=== PATIENT | female | born 1945 | race Caucasian/White ===

== ENCOUNTER 2021-12-04 12:36 | Inpatient (IN) | payer BC, MEDICAID, MEDICARE ==
[~2021-12-04] VITALS: Ht 170.2 cm; Wt 81.5 kg
[~2021-12-04 12:36] MED LIST: HYDR-4383 PO
[2021-12-04 15:03] LABS: BASOPHILS # (AUTO) 0.1 X10'3 (0-0.2); BASOPHILS % (AUTO) 1.3 % (0-1); EOSINOPHILS # (AUTO) 0.1 X10'3 (0-0.9); EOSINOPHILS % (AUTO) 2.1 % (0-6); HEMATOCRIT 40.3 % (35.0-45.0); HEMOGLOBIN 14.1 g/dl (12.0-16.0); LYMPHOCYTES # (AUTO) 1.3 X10'3 (1.1-4.8); LYMPHOCYTES % (AUTO) 24.9 % (21-51); MEAN CORPUSCULAR HEMOGLOBIN 31.2 PG (27.0-31.0); MEAN CORPUSCULAR HGB CONC 34.9 g/dL (33.0-36.5); MEAN CORPUSCULAR VOLUME 89.5 FL (78-98); MEAN PLATELET VOLUME 8.2 FL (7.4-10.4); MONOCYTES # (AUTO) 0.6 X10'3 (0-0.9); MONOCYTES % (AUTO) 11.6 % (2-12); NEUTROPHILS # (AUTO) 3.2 X10'3 (1.8-7.7); NEUTROPHILS % (AUTO) 60.1 % (42-75); PLATELET COUNT 311 X10'3 (140-440); RED BLOOD COUNT 4.51 X10'6 (4.20-5.60); RED CELL DISTRIBUTION WIDTH 13.5 % (11.5-14.5); WHITE BLOOD COUNT 5.3 X10'3 (4.5-11.0)
[2021-12-04 15:18] LABS: ALANINE AMINOTRANSFERASE 66 U/L (12-78); ALBUMIN 4.2 G/DL (3.4-5.0); ALBUMIN/GLOBULIN RATIO 1.1 (1.1-1.5); ALKALINE PHOSPHATASE 99 IU/L (46-116); ANION GAP 10 (8-16); ASPARTATE AMINO TRANSFERASE 41 U/L (10-37); BILIRUBIN,TOTAL 0.5 MG/DL (0.1-1.0); BLOOD UREA NITROGEN 17 MG/DL (7-18); BUN/CREATININE RATIO 22.4 (6.6-38.0); CALCIUM 9.5 MG/DL (8.5-10.1); CHLORIDE 97 MMOL/L (99-107); CREATININE 0.76 MG/DL (0.40-0.90); GLUCOSE 108 MG/DL (70-104); POTASSIUM 3.5 MMOL/L (3.5-5.1); SODIUM 134 MMOL/L (135-145); TOTAL CARBON DIOXIDE 26.9 MMOL/L (24-32); TOTAL PROTEIN 8.2 G/DL (6.4-8.2); eGFR 74 ML/MIN
[2021-12-04] MEDS ORDERED: LISI40TA13 PO (17:19)
[2021-12-04] MEDS ORDERED: LEVO137T2 PO (17:19)
[2021-12-04] MEDS ORDERED: AMLO2.5T5 PO (17:19)
[2021-12-04] MEDS ORDERED: POTA10TA PO (17:19)
[2021-12-04] MEDS ORDERED: CARV25TA2 PO (17:19)
[2021-12-04] MEDS ORDERED: CELE-193 PO (17:19)
[2021-12-04] MEDS ORDERED: ATOR40TA PO (17:19)
[2021-12-04] MEDS ORDERED: aspirin 81mg tab.chew PO ONE (17:45)
[2021-12-04] MEDS ORDERED: potassium Cl 20 mEq SR tablet PO PRN ×2 (18:10)
[2021-12-04] MEDS ORDERED: magnesium Cl slow-release 64mg tablet PO PRN (18:10)
[2021-12-04] MEDS ORDERED: morphine 2 MG/ML inj. syringe IV PRN ×2 (18:10)
[2021-12-04] MEDS ORDERED: magnesium 4gm in 100ml NS 100 ML IV PRN (18:10)
[2021-12-04] MEDS ORDERED: magnesium 2GM in 50ml NS 50 ML IV PRN (18:10)
[2021-12-04] MEDS ORDERED: ondansetron/PF 4mg/2ml inj IV PRN (18:10)
[2021-12-04] MEDS ORDERED: magnesium hydroxide 30ml (MOM) UD suspension PO PRN (18:10)
[2021-12-04] MEDS ORDERED: metoprolol tartrate 1mg/ml inj IV PRN (18:10)
[2021-12-04] MEDS ORDERED: bisacodyl 10mg suppository rectal RC PRN (18:10)
[2021-12-04] MEDS ORDERED: HYDROcodone/acetaminophen 5mg/325mg tablet PO PRN (18:10)
[2021-12-04] MEDS ORDERED: nitroGLYCERIN 0.4mg SUBLingual tab SL PRN (18:10)
[2021-12-04] MEDS ORDERED: HYDROcodone/acetaminophen 10/325mg tab PO PRN (18:10)
[2021-12-04] MEDS ORDERED: acetaminophen 650mg rectal suppository RC PRN (18:10)
[2021-12-04] MEDS ORDERED: acetaminophen 325mg tablet PO PRN ×2 (18:10)
[2021-12-04] MEDS ORDERED: regadenoson 0.4mg/5ml syringe IV PRN (18:10)
[2021-12-04] MEDS ORDERED: mag hydrox/Alum hydrox/simeth 30ml oral suspension PO PRN (18:10)
[2021-12-04] MEDS ORDERED: potassium CL 10mEq/100ml bag 100 ML IV PRN (18:10)
[2021-12-04] MEDS ORDERED: aminophylline 500mg/20ml vial IV ONE (18:15)
--- NOTE | 2021-12-04 18:20 | NUR ---
ambulated to/from restroom without incident.
[2021-12-04] MEDS: normal saline 1000ml 1,000 ML IV SCH ×2 (18:27→18:30)
--- NOTE | 2021-12-04 18:28 | NUR ---
report to pham david
--- NOTE | 2021-12-04 18:30 | NUR ---
Pt pink, alert, eating dinner. No acute/resp distress. PIV site c/d/i s complication or adverse reaction. Bed in lowest position, wheels locked. CM, NIBP, Pulse Ox in place. Pt laying supine, able to reposition self prn.
[2021-12-04] MEDS ORDERED: CARV12.549 PO (18:37)
[2021-12-04] MEDS ORDERED: HYDR12.55 PO (18:37)
[2021-12-04] MEDS ORDERED: ATOR-2 PO (18:37)
[2021-12-04] MEDS ORDERED: AMLO5TAB16 PO (18:37)
--- NOTE | 2021-12-04 18:43 | NUR ---
Magaly in pharmacy states Amnio is to be given in stress lab and not to be given now. Advised I will non-admin the med at this time.
[2021-12-04 18:57] LABS: HEMOGLOBIN A1C 5.4 % (4.5-6.2)
[2021-12-04 19:16] LABS: CLARITY,URINE CLEAR (Clear); GLUCOSE, URINE NEGATIVE (Neg); KETONES,URINE NEGATIVE (Neg); LEUKOCYTE ESTERASE ,URINE SMALL (Neg); NITRITES, URINE NEGATIVE (Neg); OCCULT BLOOD,URINE NEGATIVE (Neg); PROTEIN,URINE NEGATIVE (Neg); UROBILINOGEN,URINE 0.2 E.U/dL (0.2-1.0)
[2021-12-04 19:17] LABS: COLOR,URINE STRAW (Yellow); UA COLLECTION TYPE CLN CATCH MIDSTREAM
[2021-12-04 19:23] LABS: BACTERIA,URINE NONE SEEN /HPF (Neg); MUCUS STRANDS NONE SEEN /LPF (Neg); RBC,URINE 0-2 /HPF (0-2); SQUAMOUS EPITHELIAL CELL,UR FEW /LPF (FEW); WBC,URINE 0-4 /HPF (0-4)
[2021-12-04] MEDS: K and/or MAG REPLACEMENT MC SCH (20:00)
[2021-12-04] MEDS: heparin, porcine 5000 units/ml vial SQ SCH (20:57)
[2021-12-04] MEDS: docusate sod 100mg capsule PO SCH (20:57)
--- NOTE | 2021-12-04 21:00 | NUR ---
No acute/resp distress. PIV site c/d/i s complication or adverse reaction. Bed in lowest position, wheels locked. CM, NIBP, Pulse Ox in place. Pt laying supine, able to reposition self prn.
--- NOTE | 2021-12-04 22:45 | NUR ---
No acute/resp distress. Pt ambulatory to and from bathroom with steady gait. PIV site c/d/i s complication or adverse reaction. Bed in lowest position, wheels locked. CM, NIBP, Pulse Ox in place. Pt laying supine, able to reposition self prn.
[2021-12-05] VITALS (10 sets, daily range): BP systolic 126–154; BP diastolic 69–80
--- NOTE | 2021-12-05 00:05 | NUR ---
Pt ambulatory to bathroom and back. No acute/resp distress. PIV site c/d/i s complication or adverse reaction. Bed in lowest position, wheels locked. CM, NIBP, Pulse Ox in place. Pt laying supine, able to reposition self prn.
[2021-12-05] MEDS: nitroGLYCERIN 0.4mg SUBLingual tab SL PRN ×2 (00:40→00:55)
--- NOTE | 2021-12-05 00:41 | NUR ---
Pt c/o chest pain 5/10, EKG repeated and NTG SL given as ordered.
--- NOTE | 2021-12-05 00:43 | NUR ---
Pt states she feels better after SL NTG, pt states pain reduced to 0/10 from 5/10 however states still feels a smaller amount of pressure in her chest that radiates to left arm. Paged hospitalist.
--- NOTE | 2021-12-05 00:56 | NUR ---
Spoke to in house doctor, no new orders at this time. PT states pain is worse now than before the first SL NTG. 01/22.
--- NOTE | 2021-12-05 01:03 | NUR ---
Consulted with registration managerRADHA Humphreys. Pt medicated per orders for pain with Morphine after second dose of SL NTG. Will reevaluate chest pain after morphine. Pt tolerated SL NTG and IV Morphine well remained pink and dry, VS as documented. PIV site c/d/i s complication or adverse reaction. Pt laying supine, able to reposition self PRN.
--- NOTE | 2021-12-05 01:12 | NUR ---
Pt states chest tightness/pain is better after morphine 2mg PIV. Pain now 1/2 mid-sternal only. Pt pink, no acute impending respiratory distress. PIV site c/d/i s complication or adverse reaction.
--- NOTE | 2021-12-05 01:29 | NUR ---
Pt pink, alert, no acute/resp distress. CM = NSR s ectopy. PIV site c/d/i. Pt bed changed from an ED bed to a floor style bed.
[2021-12-05] MEDS ORDERED: LEVO137T24 PO (02:08)
[2021-12-05 06:02] LABS: BASOPHILS % (AUTO) 0.6 % (0-1); EOSINOPHILS # (AUTO) 0.1 X10'3 (0-0.9); EOSINOPHILS % (AUTO) 1.2 % (0-6); HEMATOCRIT 38.4 % (35.0-45.0); HEMOGLOBIN 13.3 g/dl (12.0-16.0); LYMPHOCYTES # (AUTO) 1.3 X10'3 (1.1-4.8); LYMPHOCYTES % (AUTO) 20.6 % (21-51); MEAN CORPUSCULAR HEMOGLOBIN 30.6 PG (27.0-31.0); MEAN CORPUSCULAR HGB CONC 34.7 g/dL (33.0-36.5); MEAN CORPUSCULAR VOLUME 88.4 FL (78-98); MEAN PLATELET VOLUME 8.3 FL (7.4-10.4); MONOCYTES # (AUTO) 0.5 X10'3 (0-0.9); MONOCYTES % (AUTO) 7.8 % (2-12); NEUTROPHILS # (AUTO) 4.4 X10'3 (1.8-7.7); NEUTROPHILS % (AUTO) 69.8 % (42-75); PLATELET COUNT 274 X10'3 (140-440); RED BLOOD COUNT 4.34 X10'6 (4.20-5.60); RED CELL DISTRIBUTION WIDTH 13.7 % (11.5-14.5); WHITE BLOOD COUNT 6.4 X10'3 (4.5-11.0)
--- NOTE | 2021-12-05 06:12 | NUR ---
No acute/resp distress. PIV site c/d/i s complication or adverse reaction. Bed in lowest position, wheels locked. CM, NIBP, Pulse Ox in place. Pt laying supine, able to reposition self prn. Handoff report to Clint GARCIA
[2021-12-05 06:17] LABS: ALANINE AMINOTRANSFERASE 61 U/L (12-78); ALBUMIN 3.9 G/DL (3.4-5.0); ALBUMIN/GLOBULIN RATIO 1.1 (1.1-1.5); ALKALINE PHOSPHATASE 89 IU/L (46-116); ANION GAP 9 (8-16); ASPARTATE AMINO TRANSFERASE 36 U/L (10-37); BILIRUBIN,TOTAL 0.5 MG/DL (0.1-1.0); BLOOD UREA NITROGEN 13 MG/DL (7-18); BUN/CREATININE RATIO 20.3 (6.6-38.0); CALCIUM 8.8 MG/DL (8.5-10.1); CHLORIDE 100 MMOL/L (99-107); CHOL/HDL RATIO 2.1 (0.00-4.99); CHOLESTEROL 173 MG/DL (0-200); CREATININE 0.64 MG/DL (0.40-0.90); GLUCOSE 107 MG/DL (70-104); HDL CHOLESTEROL 81 MG/DL (35-60); LDL CHOLESTEROL 80 MG/DL (50-100); MAGNESIUM 1.9 MG/DL (1.5-2.4); PHOSPHORUS 3.4 MG/DL (2.3-4.5); SODIUM 137 MMOL/L (135-145); TOTAL CARBON DIOXIDE 27.7 MMOL/L (24-32); TOTAL PROTEIN 7.6 G/DL (6.4-8.2); TRIGLYCERIDES 62 MG/DL (20-135); eGFR > 90 ML/MIN
[2021-12-05] MEDS: K and/or MAG REPLACEMENT MC SCH (08:00)
[2021-12-05] MEDS: docusate sod 100mg capsule PO SCH (10:16)
[2021-12-05] MEDS: heparin, porcine 5000 units/ml vial SQ SCH (10:16)
[2021-12-05] MEDS ORDERED: HYDROchlorothiazide 12.5mg capsule PO SCH (10:56)
[2021-12-05] MEDS ORDERED: atorvastatin 20mg tablet PO SCH (10:56)
[2021-12-05] MEDS ORDERED: cefTRIAXone 1g/NS 100ml IVPB 100 ML IV SCH (11:50)
[2021-12-05] MEDS ORDERED: NITR0.4T51 SL (17:27)
[2021-12-05] MEDS ORDERED: POTA10TA PO (17:27)
[2021-12-05] MEDS ORDERED: LACT1CAP26 PO (17:27)
[2021-12-05] MEDS ORDERED: CEFD300C3 PO (17:27)
--- NOTE | 2021-12-05 18:02 | NUR ---
Anusha was discharged, we went over the discharge packet and answered all questions IV's out telemetry off
[2021-12-05] MEDS ORDERED: amLODIPine 5mg tablet PO SCH (20:00)
[2021-12-05] MEDS ORDERED: lisinopril 20mg tablet PO SCH (20:00)
[2021-12-05] MEDS ORDERED: carVEDilol 12.5mg tablet PO SCH (20:00)
[2021-12-06] MEDS ORDERED: levoTHYROXINE 25mcg tablet PO SCH (07:00)
[2021-12-06] MEDS ORDERED: levoTHYROXINE 112mcg tablet PO SCH (07:30)
== END 2021-12-05 18:00 | disposition home or self-care (01) | DRG 392 ==
LOC: ER 12:37 → ED HOLD 18:11 → PCU 3S 12-05 08:00
PROVIDERS: ADMIT Family Medicine; ATTEND Family Medicine
PROC: 4A02XM4 Measurement of Cardiac Total Activity, External Approach (ICD-10-PCS; principal; 2021-12-05)
PROC: 3E033HZ Introduction of Radioactive Substance into Peripheral Vein, Percutaneous Approach (ICD-10-PCS; 2021-12-05)
DX: K21.9 Gastro-esophageal reflux disease without esophagitis (principal); N39.0 Urinary tract infection, site not specified; E03.9 Hypothyroidism, unspecified; E78.00 Pure hypercholesterolemia, unspecified; R07.89 Other chest pain; E78.5 Hyperlipidemia, unspecified; M19.90 Unspecified osteoarthritis, unspecified site; E87.6 Hypokalemia; I10 Essential (primary) hypertension; Z66 Do not resuscitate; Z79.890 Hormone replacement therapy; Z90.49 Acquired absence of other specified parts of digestive tract; Z90.710 Acquired absence of both cervix and uterus
CPT/HCPCS: 36415; 71045; 78452; 80053; 80061; 81001; 83036; 83735; 83880; 84100; 84132; 84484; 85025; 87081; 87088; 93005; 93017; 93306; 99285; A9500; G0378; J0696; J1644; J2270; J2785; J7030

== ENCOUNTER 2024-05-09 08:50 | Emergency (ER) | payer BC, SELFPAY ==
[~2024-05-09] VITALS: Ht 165.1 cm; Wt 77.5 kg
[~2024-05-09 08:50] MED LIST changes: +AMLO5TAB16 PO; +ATOR-2 PO; +CARV12.549 PO; -HYDR-4383 PO; +HYDR12.55 PO; +LACT1CAP26 PO; +LEVO137T24 PO; +LISI40TA13 PO; +NITR0.4T51 SL; +POTA-218 PO
[2024-05-09 09:02] VITALS: BP 119/69; PULSE 76; TEMP 97.9; O2SAT 98
[2024-05-09 10:22] VITALS: RESP 16
== END 2024-05-09 10:25 | disposition home or self-care (01) ==
LOC: ER 08:51
DX: U07.1 COVID-19 (principal); R05.9 Cough, unspecified; J22 Unspecified acute lower respiratory infection; R11.2 Nausea with vomiting, unspecified; R50.9 Fever, unspecified; E78.00 Pure hypercholesterolemia, unspecified; I10 Essential (primary) hypertension; K21.9 Gastro-esophageal reflux disease without esophagitis; M19.90 Unspecified osteoarthritis, unspecified site; E07.9 Disorder of thyroid, unspecified; Z79.899 Other long term (current) drug therapy; Z90.49 Acquired absence of other specified parts of digestive tract; Z90.710 Acquired absence of both cervix and uterus
CPT/HCPCS: 99281